=== PATIENT | male | born 1975 | race Caucasian/White ===

== ENCOUNTER 2025-01-05 00:36 | Day surgery (SDC) | payer BC, SELFPAY ==
[2024-09-15 11:51] VITALS: BMI 32.3
--- NOTE | 2024-10-04 12:17 | SUR.PREOP ---
Pt called to cancel his procedure on 10/06 due to provider availability. Pt rescheduled to 01/05 at 0800.
[2024-12-30 15:48] VITALS: BMI 33.1
[2025-01-05 06:54] VITALS: BP 121/90; PULSE 99; RESP 20; TEMP 35.6; O2SAT 99; BMI 32.5
[2025-01-05] MEDS: LACTATED RINGERS 1,000 ML 150 ML IV CONT (07:03)
--- NOTE | 2025-01-05 07:27 | P.PNAN_ITS ---
Anes - Initial Pre Proc Eval Procedure: Operation Date: 01/05/25 08:00 Proposed Procedures p Colonoscopy - Basil Denis MD Date/Time: 01/05/25 07:27 Surgeon: Basil Denis MD Pre Op Diagnosis: Positive Cologuard Patient Data Age: 49 Gender: M Height: 1.68 m Weight: 91.4 kg Last Vital Signs Temp 35.6 C L 01/05/25 06:54 Pulse 99 01/05/25 06:54 Resp 20 01/05/25 06:54 BP 121/90 01/05/25 06:54 Pulse Ox 99 01/05/25 06:54 O2 Del Method Room Air 01/05/25 06:54 Allergies Allergy/AdvReac Type Severity Reaction Status Date / Time No Known Allergies Allergy Verified 01/05/25 06:53 Home Medications ?Medication ?Instructions ?Recorded ?Confirmed ?Type albuterol sulfate 90 mcg/actuation 1 inh inhalation Q4H PRN shortness 09/17/24 12/30/24 Rx aerosol inhaler of breath or wheezing #8.5 grams lisinopril 2.5 mg tablet 2.5 mg PO DAILY #30 tabs 11/16/24 01/05/25 Rx rosuvastatin 5 mg tablet 5 mg PO DAILY #30 tabs 12/15/24 01/05/25 Rx Patient hx anesthesia problems: none Family hx anesthesia problems: none Results Review: All pre-operative results and documents have been reviewed as part of the pre- operative evaluation. [facility] Past Medical History Medical History Positive colorectal cancer screening using Cologuard test Hyperlipidemia Encounter for wellness examination BMI 32.0-32.9,adult Asthma due to seasonal allergies Seasonal allergies Family History Family History Father Malignant neoplasm of prostate Acute myocardial infarction Daughter Asthma Son Depression Social History Social History Smoking packs per day: 1.5 Smoking cigarettes per day: 30.0 Years smoked: 17 Smoking pack-years: 25.50 Smoking status: Former smoker Tobacco type: cigarettes Smoking end date: 12/21/14 Alcohol intake: current Drinks per week: 7 Substance use: never Substance use type: does not use Living arrangements: with family Occupation/Education: occupation Gender identity (if verbalized by the patient): Male Spiritual care concerns: No Agree to blood products: Yes Anes - Eval Final PreProcedure Day of Procedure 01/05/25 07:27 Patient weight: obese Heart: regular rate and rhythm Lungs: decreased breath sounds Airway: Mallampati scale class II Neurological: alert and oriented Last oral intake: >/= 8 hours ASA classification: III Emergent: no Anesthetic plan: proceed Anesthesia type and monitoring: general GIVS and standard monitoring Results Review: All pre-operative results and documents have been reviewed as part of the pre- operative evaluation. Informed Consent: The patient's anesthetic plan and its attendant risks and benefits were discussed with the patient/family/POA. Questions were solicited and answers provided to the satisfaction of the patient/family/POA.
--- NOTE | 2025-01-05 07:49 | PM.HPGS ---
History of Present Illness History of Present Illness Consent: Risks, benefits, and alternatives have been discussed and questions answered. Patient agrees to proceed with procedure. Chief complaint: Positive Cologuard Narrative: Adrian Dixon is a 49 year old male here for first colonoscopy, + cologuard Review of Systems Review of Systems: All systems reviewed & are unremarkable except as noted in HPI and below PMFSH Past Medical History Medical History Positive colorectal cancer screening using Cologuard test Hyperlipidemia Encounter for wellness examination BMI 32.0-32.9,adult Asthma due to seasonal allergies Seasonal allergies Family History Family History Father Malignant neoplasm of prostate Acute myocardial infarction Daughter Asthma Son Depression Social History Social History Smoking packs per day: 1.5 Smoking cigarettes per day: 30.0 Years smoked: 17 Smoking pack-years: 25.50 Smoking status: Former smoker Tobacco type: cigarettes Smoking end date: 12/21/14 Alcohol intake: current Drinks per week: 7 Substance use: never Substance use type: does not use Living arrangements: with family Occupation/Education: occupation Gender identity (if verbalized by the patient): Male Spiritual care concerns: No Agree to blood products: Yes Meds Home Medications and Allergies Home Medications ?Medication ?Instructions ?Recorded ?Confirmed ?Type albuterol sulfate 90 mcg/actuation 1 inh inhalation Q4H PRN shortness 09/17/24 12/30/24 Rx aerosol inhaler of breath or wheezing #8.5 grams lisinopril 2.5 mg tablet 2.5 mg PO DAILY #30 tabs 11/16/24 01/05/25 Rx rosuvastatin 5 mg tablet 5 mg PO DAILY #30 tabs 12/15/24 01/05/25 Rx Allergies Allergy/AdvReac Type Severity Reaction Status Date / Time No Known Allergies Allergy Verified 01/05/25 06:53 Vital Signs Vital Signs - 24 hr 01/05/25 06:54 Temperature 96.1 F L Pulse Rate 99 Respiratory Rate 20 Blood Pressure 121/90 Pulse Oximetry 99 Oxygen Delivery Room Air Exam Const: General: comfortable and no acute distress HENMT: Face/Nose/Sinus: Normal nares present Eyes: General: appearance normal, both eyes and all related structures Neck: Neck: no JVD Resp: Auscultation: clear to auscultation bilaterally Cardio: Rate: regular rate Rhythm: regular rhythm GI: Inspection: non-distended GI Palp: Yes Soft to palpation Skin: General skin exam: normal color Neuro: General: gait normal Speech: normal speech Extrem: General: normal to inspection Psych: Mental Status: mental status grossly normal Assessment and Plan Assessment and plan (1) Positive colorectal cancer screening using Cologuard test: Code(s): R19.5 - Other fecal abnormalities Status: Acute Assessment and Plan: colonoscopy
[2025-01-05 08:15] VITALS: BP 120/68; PULSE 91; RESP 22; O2SAT 91
[2025-01-05 08:25] VITALS: BP 117/77; PULSE 90; RESP 22; O2SAT 95
[2025-01-05 08:35] VITALS: BP 127/85; PULSE 86; RESP 22; O2SAT 97
[2025-01-05 08:45] VITALS: BP 121/86; PULSE 80; RESP 18; O2SAT 93
--- NOTE | 2025-01-05 08:47 | SUR.PHASEII ---
DR CARTWRIGHT NOTIFIED PT WEANED OFF 15L SIMPLE FACE MASK, RUNNING MOSTLY 93-94% ON ROOM AIR WITH OCCASIONAL DROPS TO 88-89%, PT COUGHING ON HIS OWN WITHOUT DIFFICULTY, ABLE TO DRINK WATER, AWAKE AND TALKING WITH NO CONCERN, PT EDUCATED TO CONTINUE COUGHING AND TO USE DEEP BREATHING EXERCISES, NO NEW ORDERS OTHER THAN TO DISCHARGE PT. PT STATES UNDERSTANDING.
== END 2025-01-05 08:50 | disposition home or self-care (01) ==
PROVIDERS: PCP Family Medicine; Referring Provider Student in an Organized Health Care Education/Training Program; Visit Provider Internal Medicine Gastroenterology
PROC: 0DJD8ZZ Inspection of Lower Intestinal Tract, Via Natural or Artificial Opening Endoscopic (ICD-10-PCS; CPT 45378; principal; 2025-01-05 08:00)
DX: D12.2 Benign neoplasm of ascending colon (principal); D12.5 Benign neoplasm of sigmoid colon; K64.8 Other hemorrhoids; E78.5 Hyperlipidemia, unspecified; J45.909 Unspecified asthma, uncomplicated; E66.9 Obesity, unspecified; Z68.32 Body mass index [BMI] 32.0-32.9, adult; Z79.51 Long term (current) use of inhaled steroids; Z87.891 Personal history of nicotine dependence; Z80.42 Family history of malignant neoplasm of prostate; Z82.49 Family history of ischemic heart disease and other diseases of the circulatory system
CPT/HCPCS: 45385; 88305; J2704; J7120